=== PATIENT | male | born 1965 | race American Indian/Alaskan Native ===

== ENCOUNTER 2017-10-05 08:25 | Observation (INO) | payer OTHER ==
[2017-10-05 08:25] VITALS: BMI 878.8
--- NOTE | 2017-10-05 09:47 | ED PDOC ---
HPI: General Adult Time Seen by Provider: 10/05/17 09:40 Chief Complaint (Nursing): Chest Pain Chief Complaint (Provider): chest pain History Per: Patient History/Exam Limitations: no limitations Onset/Duration Of Symptoms: Days (7) Have you had recent travel within the past 21 days to any of the following countries: [place], [place], [place] or [place]?: No Current Symptoms Are (Timing): Better Severity: Severe Pain Scale Rating Of: 8 Location: left chest Similar Symptoms Previously: no Recent Trauma: no Additional Complaint(s): pt p/w + ~ 1 week onset of left sided chest pain, at times radiating down to her left upper abd wall region; pt states pain is intermittent, and lasting at most ~ 1 hour; pt states no fever/chills/sweats, no palpitations, no abd pain, no n/v, no numbness/tingling, no urinary/bowel changes; pt denied loc, no lightheadedness, no fall/trauma/sick contact, no travel; pt denied rashes, no other complaints; pt states he became concern today due to the intensity of the pain today; pt states at most pain is severe at 8/10; pt also drinks almost daily, last drink was last night; pt is here for further eval; pt's without other complaints PCP: none family hx: none Past Medical History Reviewed: Historical Data, Nursing Documentation, Vital Signs Vital Signs: Last Vital Signs Temp 98.1 F 10/05/17 08:39 Pulse 77 10/05/17 11:13 Resp 16 10/05/17 11:13 BP 139/82 10/05/17 11:13 Pulse Ox 98 10/05/17 12:53 - Surgical History Surgical History: Tonsillectomy - Family History Family History: States: Unknown Family Hx - Living Arrangements Living Arrangements: With Family - Social History Current smoker - smoking cessation education provided: Yes (6-7 cigs/day) Alcohol: > 2 Drinks/Day Drugs: Cannabis - Immunization History Hx Tetanus Toxoid Vaccination: No Hx Influenza Vaccination: No Hx Pneumococcal Vaccination: No - Home Medications Home Medications: Ambulatory Orders Medication Instructions Recorded Ibuprofen 600 mg PO QID #10 tab 07/04/15 Naproxen [Naprosyn] 500 mg PO BID PRN #14 tablet 04/12/16 - Allergies Allergies/Adverse Reactions: Allergies Allergy/AdvReac Type Severity Reaction Status Date / Time No Known Allergies Allergy Verified 07/04/15 08:50 Review of Systems ROS Statement: Except As Marked, All Systems Reviewed And Found Negative Constitutional: Negative for: Fever, Weakness Eyes: Negative for: Pain ENT: Negative for: Ear Pain Cardiovascular: Positive for: Chest Pain. Negative for: Palpitations Respiratory: Negative for: Shortness of Breath, SOB with Exertion Gastrointestinal: Negative for: Nausea, Vomiting, Abdominal Pain Genitourinary Male: Negative for: Dysuria Musculoskeletal: Negative for: Neck Pain, Back Pain Skin: Negative for: Rash Neurological: Negative for: Weakness, Confusion, Dizziness Physical Exam - Reviewed Nursing Documentation Reviewed: Yes Vital Signs Reviewed: Yes (elevated BP) - Physical Exam Appears: Positive for: Well, Non-toxic (resting in bed, cooperative, mildly uncomfortable, NAD, alert/awake, GCS = 15, oriented x 3), No Acute Distress Head Exam: Positive for: ATRAUMATIC, NORMAL INSPECTION, NORMOCEPHALIC Skin: Positive for: Normal Color (cap refill < 1sec, no ulcerations, no petechiae, no rashes/lesions/pallor), Warm, Dry Eye Exam: Positive for: Normal appearance, EOMI, PERRL. Negative for: Nystagmus ENT: Positive for: Normal ENT Inspection, Other (uvula/tongue are midline, no exudate/lesions, no drooling/stridor; no dysphonia) Neck: Positive for: Normal, Supple, Trachea Midline Cardiovascular/Chest: Positive for: Regular Rate, Rhythm, Chest Non Tender, Other (+S1, +S2) Respiratory: Positive for: Normal Breath Sounds, Other (CTA b/l, no w/r/r, no accessory muscle use noted, no tachypenia) Gastrointestinal/Abdominal: Positive for: Normal Exam, Other (well nourished male, no focal tenderness, no baird's sign, no mcburneys' point tenderness, no masses/rebound/guarding/rigidity) Back: Positive for: Normal Inspection. Negative for: L CVA Tenderness, R CVA Tenderness Extremity: Positive for: Normal ROM, Other (no pitting edema noted b/l, strength 5/5 grossly intact in all limbs, neurovasc intact b/l, + ambulatory). Negative for: Tenderness, Pedal Edema, Calf Tenderness Neurologic/Psych: Positive for: Alert, multiple resaw operator II-XII, Oriented. Negative for: Motor/Sensory Deficits, Facial Droop - Laboratory Results Result Diagrams: 10/05/17 09:55 10/05/17 09:55 - ECG ECG: Positive for: Interpreted By Me Interpretation Of ECG: NSR at 70 bpm, normal axis, no ectopy, voltage criteria LVH, non-specific st-t changes, ABNL EKG; unchanged compare with old ekg 07/2015 O2 Sat by Pulse Oximetry: 98 Pulse Ox Interpretation: Normal - Radiology X-Ray: Viewed By Me, Read By Radiologist - Progress ED Course And Treament: HISTORY: COMPARISON: No prior. TECHNIQUE: Chest PA and lateral FINDINGS: LINES AND TUBES: None. LUNG AND PLEURA: The lungs are well inflated . No lobar pneumonia. There is an apparent 5 mm nodular opacity in the left mid lung. HEART AND MEDIASTINUM: The heart is not enlarged. The hilar and mediastinal contours are within normal limits. SKELETAL STRUCTURES: The bony structures are within normal limits for the patient's age. VISUALIZED UPPER ABDOMEN: Normal. OTHER FINDINGS: None. IMPRESSION: No active pulmonary disease. Apparent 5 mm nodular opacity in the left mid lung. A dedicated CT scan of the thorax without intravenous contrast on a nonemergent basis is recommended for further characterization and complete evaluation of the lungs. pt is currently chest pain free pt is stable, NAD vital signs stable 12:25pm - I spoke to Dr Clay, yardage control operator forming medical service, made aware, agrees with admission/observation pt is made aware of his medical results agrees with admission/observation Re-evaluation Time: 12:00 Condition: Re-examined, Improved - Physician Consult Information Time Consulting Physican Contacted: 12:25 Physician Contacted: Karthik Clay Outcome Of Conversation: yardage control operator forming medical service attending, made aware, agrees with admission/ observation placement Medical Decision Making Medical Decision Making: Impression: chest pain i have consider all the differential diagnosis regarding pt's chief medical complaints/clinical findings, including but are not limited to: chest pain, r/o acs A/P: chest pain, r/o acs - labs - iv - acs eval - observe - supportive care Disposition - Clinical Impression Clinical Impression: Chest pain with low risk of acute coronary syndrome - Patient ED Disposition Is Patient to be Admitted: Yes Discussed With : Karthik Clay Doctor Will See Patient In The: Hospital Counseled Patient/Family Regarding: Studies Performed, Diagnosis, Rx Given, Smoking Cessation - Disposition Disposition Time: 12:31 Condition: STABLE Forms: Yulex (Slovenian) - Pt Status Changed To: Hospital Disposition Of: Observation
[2017-10-05] MEDS: Sodium Chloride 0.9% 1,000 ML IV SCH ×2 (10:02→22:04)
[2017-10-05 10:21] LABS: BASO % 1.1 % (0.0-2.0); EOS # 0.1 K/uL (0.0-0.7); EOS % 1.9 % (0.0-4.0); HEMOGLOBIN 16.1 g/dL (12.0-18.0); LYMPH % 23.2 % (20.0-40.0); MEAN CELL VOLUME 90.3 fl (80.0-94.0); MEAN CORPUSCULAR HEMOGLOBIN 29.9 pg (27.0-31.0); MEAN CORPUSCULAR HGB CONC 33.1 g/dL (33.0-37.0); MEAN PLATELET VOLUME 8.4 fl (7.2-11.7); MONO # 0.6 K/uL (0.0-0.8); MONO % 13.8 % (0.0-10.0); NEUT # 2.5 K/uL (1.8-7.0); NRBC % 0.2 % (0.0-0.0); RBC 5.4 Mil/uL (4.40-5.90); RED CELL DISTRIBUTION WIDTH 13.3 % (11.5-14.5); WHITE BLOOD COUNT 4.1 K/uL (4.8-10.8)
[2017-10-05 10:24] LABS: SQUAMOUS EPITHIAL 1 /hpf (0-5); URINE BILIRUBIN NEGATIVE (NEGATIVE); URINE BLOOD NEGATIVE (NEGATIVE); URINE CLARITY SLIGHTY-CLOUDY (Clear); URINE COLOR YELLOW (YELLOW); URINE GLUCOSE (UA) NEG (Normal); URINE LEUKOCYTE ESTERASE TRACE Leu/uL (Negative); URINE PROTEIN 100 mg/dL (NEGATIVE)
[2017-10-05 10:35] LABS: ALBUMIN 4.3 g/dL (3.5-5.0); ALT/SGPT 31 U/L (21-72); AST/SGOT 38 U/L (17-59); BLOOD UREA NITROGEN 8 mg/dl (9-20); CALCIUM 9.2 mg/dL (8.4-10.2); GFR AFRICAN-AMERICAN > 60; GFR NON-AFRICAN AMERICAN > 60; LIPASE 34 U/L (23-300)
--- NOTE | 2017-10-05 11:50 | RAD ---
HISTORY: COMPARISON: No prior. TECHNIQUE: Chest PA and lateral FINDINGS: LINES AND TUBES: None. LUNG AND PLEURA: The lungs are well inflated . No lobar pneumonia. There is an apparent 5 mm nodular opacity in the left mid lung. HEART AND MEDIASTINUM: The heart is not enlarged. The hilar and mediastinal contours are within normal limits. SKELETAL STRUCTURES: The bony structures are within normal limits for the patient's age. VISUALIZED UPPER ABDOMEN: Normal. OTHER FINDINGS: None. IMPRESSION: No active pulmonary disease. Apparent 5 mm nodular opacity in the left mid lung. A dedicated CT scan of the thorax without intravenous contrast on a nonemergent basis is recommended for further characterization and complete evaluation of the lungs.
--- NOTE | 2017-10-05 15:57 | HP ---
HISTORY OF PRESENT ILLNESS: Mr. Torres is a 52-year-old male who was admitted via the Emergency Room because of left-sided chest and shoulder pain for 4 days prior to presentation, worse on the day of admission. According to the patient's , he had pushed the shopping cart down in embankment before pain started. The patient showed up in the Emergency Room where he was admitted to rule out acute coronary syndrome. PAST MEDICAL HISTORY: He has a past medical history of chest pains in the past, but has never been completely worked up for it. He also has a history of chronic alcoholism and chronic cigarette smoking. FAMILY HISTORY: Noncontributory. SOCIAL HISTORY: Socially, he smokes cigarettes daily and also drinks alcohol heavily (beer) and lives at home with and children. REVIEW OF SYSTEMS: Essentially unremarkable. PHYSICAL EXAMINATION: GENERAL: The patient is alert and oriented, appears much more comfortable at present. VITAL SIGNS: Remarkable for blood pressure of 119/65 with the pulse of 82, respiratory rate of 18. He is afebrile. O2 sat is 98% on room air. SKIN: Shows fair turgor. HEENT: Pupils are equal and reactive to light and accommodation. Mouth shows fair hygiene. NECK: JVP flat. LUNGS: Clear. HEART: Regular. No murmurs or gallop. No chest wall tenderness on deep palpation. ABDOMEN: Soft and nontender, no organomegaly. EXTREMITIES: Show no edema or cyanosis. CENTRAL NERVOUS SYSTEM: Exam is grossly intact. LABORATORY DATA: Already reviewed and shows no abnormalities. EKG, regular sinus rhythm, no ST-T changes. IMPRESSION: Chest pain, one has to rule out acute coronary syndrome, history of chronic alcoholism, and history of chronic cigarette smoking. PLAN: The plan is monitor the patient in telemetry. Obtain cardiac evaluation. Obtain troponin x24 hours. I will repeat EKG in a.m. If clinically stable and cleared by cardiology, we will plan discharge in a.m. Karthik Clay MD
--- NOTE | 2017-10-05 17:40 | CP.PCM.CON ---
History of Present Illness - History of Present Illness History of Present Illness: 52 y/o male with left chest and shoulder pain. pt states pain is sharp, started 2 weeks ago after lifting a heavy object. he believes he injured his chest of shoulder. pt denies sob, palp, orthopnea, pnd ashanti. he denies cardiac hx, denies dm, htn, dyslipidemia. no fam hx of cad. Review of Systems - Constitutional Constitutional: As Per HPI. absent: Anorexia, Chills, Daytime Sleepiness, Excessive Sweating, Fatigue, Fever, Frequent Falls, Headache, Increased Appetite , Lethargy, Malaise, Night Sweats, Snoring, Sleep Apnea, Weight Gain, Weight Loss, Weakness, Other - EENT Eyes: As Per HPI. absent: Blind Spots, Blurred Vision, Change in Vision, Decreased Night Vision, Diplopia, Discharge, Dry Eye, Exophthalmos, Floaters, Irritation, Itchy Eyes, Loss of Peripheral Vision, Pain, Photophobia, Requires Corrective Lenses, Sees Flashes, Spots in Vision, Tunnel Vision, Other Visual Disturbances, Loss of Vision, Other Ears: As Per HPI. absent: Decreased Hearing, Ear Discharge, Ear Pain, Tinnitus , Abnormal Hearing, Disequilibrium, Dizziness, Other Nose/Mouth/Throat: As Per HPI. absent: Epistaxis, Nasal Congestion, Nasal Discharge, Nasal Obstruction, Nasal Trauma, Nose Pain, Post Nasal Drip, Sinus Pain, Sinus Pressure, Bleeding Gums, Change in Voice, Dental Pain, Dry Mouth, Dysphagia, Halitosis, Hoarsness, Lip Swelling, Mouth Lesions, Mouth Pain, Odynophagia, Sore Throat, Throat Swelling, Tongue Swelling, Facial Pain, Neck Pain, Neck Mass, Other - Cardiovascular Cardiovascular: As Per HPI, Chest Pain. absent: Acrocyanosis, Chest Pain at Rest, Chest Pain with Activity, Claudication, Diaphoresis, Dyspnea, Dyspnea on Exertion, Edema, Irregular Heart Rhythm, Pain Radiating to Arm/Neck/Jaw, Leg Edema, Leg Ulcers, Lightheadedness, Orthopnea, Palpitations, Paroxysmal Nocturnal Dyspnea, Pedal Edema, Radiating Pain, Rapid Heart Rate, Slow Heart Rate, Syncope, Other - Respiratory Respiratory: As Per HPI. absent: Cough, Dyspnea, Hemoptysis, Dyspnea on Exertion, Wheezing, Snoring, Stridor, Pain on Inspiration, Chest Congestion, Excessive Mucous Production, Change in Mucous Color, Pain with Coughing, Other - Gastrointestinal Gastrointestinal: As Per HPI. absent: Abdominal Pain, Belching, Bloating, Change in Bowel Habits, Change in Stool Character, Coffee Ground Emesis, Constipation, Cramping, Diarrhea, Dyspepsia, Dysphagia, Early Satiety, Excessive Flatus, Fecal Incontinence, Heartburn, Hematemesis, Hematochezia, Loose Stools, Melena, Nausea, Odynophagia, Temesmus, Vomiting, Other - Genitourinary Genitourinary: As Per HPI. absent: Change in Urinary Stream, Difficulty Urinating, Dysuria, Flank Pain, Hematuria, Pyuria, Nocturia, Urinary Incontinence, Urinary Frequency, Urinary Hesitance, Urinary Urgency, Voiding Freq/Small Amts, Freq UTI, Hx Renal/Bladder Calculi, Hx /Renal Surgery, Bladder Distension, Other - Reproductive: Male Reproductive:Male: As Per HPI - Musculoskeletal Musculoskeletal: As Per HPI, Limited Range of Motion. absent: Abnormal Gait, Arthralgias, Atrophy, Back Pain, Deformity, Joint Swelling, Loss of Height, Muscle Cramps, Muscle Weakness, Myalgias, Neck Pain, Numbness, Radiating Pain into Limb, Stiffness, Tingling, Other Additional comments: unable to actively abduct or flex at left shoulder joint. - Integumentary Integumentary: As Per HPI. absent: Acne, Alopecia, Bleeding Lesions, Change in Hair, Change in Nails, Change in Pigmentation, Changing Lesions, Dry Skin, Erythema, Furuncle, Hirsutism, Lesions, New Lesions, Non-Healing Lesions, Photosensitivity, Pruritus, Rash, Skin Pain, Skin Ulcer, Sores, Striae, Swelling , Unusual Bruising, Wounds, Jaundice, Other - Neurological Neurological: As Per HPI. absent: Abnormal Gait, Abnormal Hearing, Abnormal Movements, Abnormal Speech, Behavioral Changes, Burning Sensations, Confusion, Convulsions, Disequilibrium, Dizziness, Numbness, Focal Weakness, Frequent Falls , Headaches, Lack of Coordination, Loss of Vision, Memory Loss, Paresthesias, Radicular Pain, Restless Legs, Sensory Deficit, Syncope, Tingling, Tremor, Vertigo, Weakness, Other Visual Disturbances, Other - Psychiatric Psychiatric: As Per HPI. absent: Abnormal Sleep Pattern, Anhedonia, Anxiety, Auditory Hallucinations, Behavioral Changes, Change in Appetite, Change in Libido, Confusion, Depression, Difficulty Concentrating, Hallucinations, Homicidal Ideation, Hopelessness, Irritability, Memory Loss, Mood Swings, Panic Attacks, Paranoia, Suicidal Ideation, Visual Hallucinations, Tactile Hallucinations, Other - Endocrine Endocrine: As Per HPI. absent: Change in Body Appearance, Change in Libido, Cold Intolorance, Deepening of Voice, Excessive Sweating, Fatigue, Flushing, Heat Intolorance, Increase in Ring/Shoe/Hat Size, Palpitations, Polydipsia, Polyphagia, Polyuria, Other - Hematologic/Lymphatic Hematologic: As Per HPI. absent: Easy Bleeding, Easy Bruising, Lymphadenopathy , Other Past Patient History - Past Social History Smoking Status: Heavy Smoker > 10 Cigarettes Daily Chewing Tobacco Use: No Cigar Use: No Alcohol: > 2 Drinks/Day Drugs: Cannabis - CARDIAC Hx Cardiac Disorders: No - PSYCHIATRIC Hx Substance Use: No (DENIED) - SURGICAL HISTORY Hx Tonsillectomy: Yes - ANESTHESIA Hx Anesthesia: Yes Hx Anesthesia Reactions: No Meds Allergies/Adverse Reactions: Allergies Allergy/AdvReac Type Severity Reaction Status Date / Time No Known Allergies Allergy Verified 07/04/15 08:50 - Medications Medications: Current Medications Alprazolam (Xanax) 0.25 mg PO Q12 PRN PRN Reason: Agitation Stop: 10/12/17 15:04 Aspirin (Aspirin Chewable) 81 mg PO DAILY [facility] Enoxaparin Sodium (Lovenox) 40 mg SC DAILY [facility] PRN Reason: Protocol Sodium Chloride (Sodium Chloride 0.9%) 1,000 mls @ 100 mls/hr IV .Q10H [facility] Stop: 10/06/17 09:43 Last Admin: 10/05/17 10:02 Dose: 100 mls/hr Naproxen (Naprosyn Tab) 375 mg PO Q12 [facility] Physical Exam - Constitutional Appears: Non-toxic - Head Exam Head Exam: ATRAUMATIC, NORMAL INSPECTION, NORMOCEPHALIC - Eye Exam Eye Exam: EOMI, Normal appearance, PERRL. absent: Conjunctival injection, Nystagmus, Periorbital swelling, Periorbital tenderness, Scleral icterus Pupil Exam: NORMAL ACCOMODATION, PERRL. absent: Fixed, Irregular, Miosis, Mydriatic, Unequal - ENT Exam ENT Exam: Mucous Membranes Moist, Normal Exam. absent: Mucous Membranes Dry, Normal External Ear Exam, Normal Oropharynx, TM's Normal Bilaterally - Neck Exam Neck exam: Positive for: Normal Inspection. Negative for: Full Rom, Lymphadenopathy, Meningismus, Tenderness, Thyromegaly - Respiratory Exam Respiratory Exam: Clear to Auscultation Bilateral, NORMAL BREATHING PATTERN. absent: Accessory Muscle Use, Chest Wall Tenderness, Decreased Breath Sounds, Prolonged Expiratory Phase, Rales, Rhonchi, Wheezes, Respiratory Distress, Stridor - Cardiovascular Exam Cardiovascular Exam: REGULAR RHYTHM, +S1, +S2. absent: Bradycardia, Tachycardia , Clicks, Diastolic murmur, Gallop, Irregular Rhythm, JVD, RRR, Rubs, +S4, Systolic Murmur - GI/Abdominal Exam GI & Abdominal Exam: Normal Bowel Sounds, Soft. absent: Bruit, Diminished Bowel Sounds, Distended, Firm, Guarding, Hernia, Hyperactive Bowel Sounds, Hypoactive Bowel Sounds, Mass, Organomegaly, Pulsatile Mass, Rebound, Rigid, Tenderness - Rectal Exam Rectal Exam: Deferred - Extremities Exam Additional comments: left shoulder weakness unable to abduct or flex at left ghj. with passive motion pain is reproduced. - Back Exam Back exam: NORMAL INSPECTION - Neurological Exam Neurological exam: Alert, CN II-XII Intact, Normal Gait, Oriented x3, Reflexes Normal - Psychiatric Exam Psychiatric exam: Normal Affect, Normal Mood - Skin Skin Exam: Dry, Intact, Normal Color, Warm Results - Vital Signs Recent Vital Signs: Last Vital Signs Temp 98.1 F 10/05/17 08:39 Pulse 82 10/05/17 13:39 Resp 18 10/05/17 13:39 BP 119/65 10/05/17 13:39 Pulse Ox 98 10/05/17 13:39 - Labs Result Diagrams: 10/05/17 09:55 10/05/17 09:55 Labs: Laboratory Results - last 24 hr 10/05/17 10/05/17 10/05/17 09:55 09:55 09:55 WBC 4.1 L RBC 5.40 Hgb 16.1 Hct 48.8 MCV 90.3 MCH 29.9 MCHC 33.1 RDW 13.3 Plt Count 141 MPV 8.4 Neut % (Auto) 60.0 Lymph % (Auto) 23.2 Desha % (Auto) 13.8 H Eos % (Auto) 1.9 Baso % (Auto) 1.1 Neut # (Auto) 2.5 Lymph # (Auto) 1.0 Desha # (Auto) 0.6 Eos # (Auto) 0.1 Baso # (Auto) 0.0 Sodium 142 Potassium 3.9 Chloride 101 Carbon Dioxide 28 Anion Gap 17 BUN 8 L Creatinine 0.7 L Est GFR ( Amer) > 60 Est GFR (Non-Af Amer) > 60 Random Glucose 88 Calcium 9.2 Magnesium 1.9 Total Bilirubin 0.6 AST 38 ALT 31 Alkaline Phosphatase 80 Troponin I < 0.0120 Total Protein 8.6 H Albumin 4.3 Globulin 4.3 H Albumin/Globulin Ratio 1.0 Lipase 34 Urine Color Yellow Urine Clarity Slighty-cloudy Urine pH 6.0 Ur Specific [place] 1.023 Urine Protein 100 Urine Glucose (UA) Neg Urine Ketones Trace Urine Blood Negative Urine Nitrate Negative Urine Bilirubin Negative Urine Urobilinogen 2.0 Ur Leukocyte Esterase Trace Urine RBC (Auto) 3 Urine Microscopic WBC 7 H Ur Squamous Epith Cells 1 Alcohol, Quantitative < 10 10/05/17 15:58 WBC RBC Hgb Hct MCV MCH MCHC RDW Plt Count MPV Neut % (Auto) Lymph % (Auto) Desha % (Auto) Eos % (Auto) Baso % (Auto) Neut # (Auto) Lymph # (Auto) Desha # (Auto) Eos # (Auto) Baso # (Auto) Sodium Potassium Chloride Carbon Dioxide Anion Gap BUN Creatinine Est GFR ( Amer) Est GFR (Non-Af Amer) Random Glucose Calcium Magnesium Total Bilirubin AST ALT Alkaline Phosphatase Troponin I < 0.0120 Total Protein Albumin Globulin Albumin/Globulin Ratio Lipase Urine Color Urine Clarity Urine pH Ur Specific [place] Urine Protein Urine Glucose (UA) Urine Ketones Urine Blood Urine Nitrate Urine Bilirubin Urine Urobilinogen Ur Leukocyte Esterase Urine RBC (Auto) Urine Microscopic WBC Ur Squamous Epith Cells Alcohol, Quantitative - EKG Data EKG Interpreted by: Myself EKG shows normal: Sinus rhythm Rate: Normal Assessment & Plan (1) Musculoskeletal chest pain Status: Acute (2) Left shoulder pain Status: Acute (3) LUE weakness Status: Acute - Assessment and Plan (Free Text) Plan: ekg wnl, no LVH (increased voltage due to body habitus) pain c/w MSK. His limited shoulder mobility is concerning for ligament or tendon tears will consult ortho no further cardiac w/u nec trop neg x2
[2017-10-05] MEDS: Enoxaparin 40 mg Syringe SC SCH (18:04)
--- NOTE | 2017-10-05 18:09 | CARD ---
APPROVED REPORT EKG Measurement Heart [id number] <Conclusion> Normal sinus rhythm Moderate voltage criteria for LVH, may be normal variant Borderline ECG
[2017-10-06 07:55] LABS: HDL CHOLESTEROL 48 MG/DL (30-70)
[2017-10-06 08:06] LABS: LDL CHOLESTEROL 128 mg/dL (0-129)
[2017-10-06 08:24] VITALS: BP 132/80; PULSE 73; RESP 20; TEMP 98.3; O2SAT 99
[2017-10-06] MEDS: Enoxaparin 40 mg Syringe SC SCH (08:33)
--- NOTE | 2017-10-06 10:14 | CP.PCM.DIS ---
Provider - Provider Date of Admission: 10/05/17 12:31 Attending physician: Karthik Clay MD Time Spent in preparation of Discharge (in minutes): 30 Diagnosis - Discharge Diagnosis (1) Chronic alcohol abuse Status: Acute (2) Left shoulder pain Status: Acute (3) Musculoskeletal chest pain Status: Acute Hospital Course - Lab Results Lab Results: Most Recent Lab Values WBC 4.1 K/uL (4.8-10.8) L 10/05/17 09:55 RBC 5.40 Mil/uL (4.40-5.90) 10/05/17 09:55 Hgb 16.1 g/dL (12.0-18.0) 10/05/17 09:55 Hct 48.8 % (35.0-51.0) 10/05/17 09:55 MCV 90.3 fl (80.0-94.0) 10/05/17 09:55 MCH 29.9 pg (27.0-31.0) 10/05/17 09:55 MCHC 33.1 g/dL (33.0-37.0) 10/05/17 09:55 RDW 13.3 % (11.5-14.5) 10/05/17 09:55 Plt Count 141 K/uL (130-400) 10/05/17 09:55 MPV 8.4 fl (7.2-11.7) 10/05/17 09:55 Neut % (Auto) 60.0 % (50.0-75.0) 10/05/17 09:55 Lymph % (Auto) 23.2 % (20.0-40.0) 10/05/17 09:55 Cole % (Auto) 13.8 % (0.0-10.0) H 10/05/17 09:55 Eos % (Auto) 1.9 % (0.0-4.0) 10/05/17 09:55 Baso % (Auto) 1.1 % (0.0-2.0) 10/05/17 09:55 Neut # (Auto) 2.5 K/uL (1.8-7.0) 10/05/17 09:55 Lymph # (Auto) 1.0 K/uL (1.0-4.3) 10/05/17 09:55 Cole # (Auto) 0.6 K/uL (0.0-0.8) 10/05/17 09:55 Eos # (Auto) 0.1 K/uL (0.0-0.7) 10/05/17 09:55 Baso # (Auto) 0.0 K/uL (0.0-0.2) 10/05/17 09:55 Sodium 142 mmol/l (132-148) 10/05/17 09:55 Potassium 3.9 MMOL/L (3.6-5.0) 10/05/17 09:55 Chloride 101 mmol/L (98-107) 10/05/17 09:55 Carbon Dioxide 28 mmol/L (22-30) 10/05/17 09:55 Anion Gap 17 (10-20) 10/05/17 09:55 BUN 8 mg/dl (9-20) L 10/05/17 09:55 Creatinine 0.7 mg/dl (0.8-1.5) L 10/05/17 09:55 Est GFR ( Amer) > 60 10/05/17 09:55 Est GFR (Non-Af Amer) > 60 10/05/17 09:55 Random Glucose 88 mg/dL (75-110) 10/05/17 09:55 Calcium 9.2 mg/dL (8.4-10.2) 10/05/17 09:55 Magnesium 1.9 MG/DL (1.6-2.3) 10/05/17 09:55 Total Bilirubin 0.6 mg/dl (0.2-1.3) 10/05/17 09:55 AST 38 U/L (17-59) 10/05/17 09:55 ALT 31 U/L (21-72) 10/05/17 09:55 Alkaline Phosphatase 80 U/L (38-126) 10/05/17 09:55 Troponin I < 0.0120 ng/mL (0.00-0.120) 10/05/17 15:58 Total Protein 8.6 G/DL (6.3-8.2) H 10/05/17 09:55 Albumin 4.3 g/dL (3.5-5.0) 10/05/17 09:55 Globulin 4.3 gm/dL (2.2-3.9) H 10/05/17 09:55 Albumin/Globulin Ratio 1.0 (1.0-2.1) 10/05/17 09:55 Triglycerides 121 mg/DL (0-149) 10/06/17 07:02 Cholesterol 214 mg/dL (0-199) H 10/06/17 07:02 LDL Cholesterol Direct 128 mg/dL (0-129) 10/06/17 07:02 HDL Cholesterol 48 MG/DL (30-70) 10/06/17 07:02 Lipase 34 U/L (23-300) 10/05/17 09:55 Urine Color Yellow (YELLOW) 10/05/17 09:55 Urine Clarity Slighty-cloudy (Clear) 10/05/17 09:55 Urine pH 6.0 (5.0-8.0) 10/05/17 09:55 Ur Specific [place] 1.023 (1.003-1.030) 10/05/17 09:55 Urine Protein 100 mg/dL (NEGATIVE) 10/05/17 09:55 Urine Glucose (UA) Neg mg/dL (Normal) 10/05/17 09:55 Urine Ketones Trace mg/dL (NEGATIVE) 10/05/17 09:55 Urine Blood Negative (NEGATIVE) 10/05/17 09:55 Urine Nitrate Negative (NEGATIVE) 10/05/17 09:55 Urine Bilirubin Negative (NEGATIVE) 10/05/17 09:55 Urine Urobilinogen 2.0 mg/dL (0.2-1.0) 10/05/17 09:55 Ur Leukocyte Esterase Trace Vivian/uL (Negative) 10/05/17 09:55 Urine RBC (Auto) 3 /hpf (0-3) 10/05/17 09:55 Urine Microscopic WBC 7 /hpf (0-5) H 10/05/17 09:55 Ur Squamous Epith Cells 1 /hpf (0-5) 10/05/17 09:55 Alcohol, Quantitative < 10 mg/dl (0-10) 10/05/17 09:55 - Hospital Course Hospital Course: CHEST PAIN RESOLVED TROPONIN NEGATIVE EKG-RSR Discharge Exam - Head Exam Head Exam: ATRAUMATIC, NORMAL INSPECTION, NORMOCEPHALIC - Eye Exam Eye Exam: EOMI, Normal appearance, PERRL Pupil Exam: NORMAL ACCOMODATION, PERRL - GI/Abdominal Exam GI & Abdominal Exam: Normal Bowel Sounds - Rectal Exam Rectal Exam: NORMAL INSPECTION - Extremities Exam Additional comments: L SHOULDER TENDERNESS - Neurological Exam Neurological exam: Alert, CN II-XII Intact, Normal Gait, Oriented x3, Reflexes Normal - Psychiatric Exam Psychiatric exam: Normal Affect, Normal Mood - Skin Skin Exam: Dry, Intact, Normal Color, Warm Discharge Plan - Follow Up Plan Condition: STABLE Disposition: HOME/ ROUTINE Patient education suggested?: Yes Additional Instructions: CLEARED FOR D/C BY MENTAL HEALTH CASE MANAGER WILL FOLLOW UP WITH PMD FOR FURTHER EVAL ADVISED SMOKING CAESATION AND ALCOHOL ABSTINENCE
== END 2017-10-06 10:30 | disposition home or self-care (01) ==
LOC: H.ER 08:25 → H.ERHOLD 12:31 → H.TEL 10-06 01:10
PROVIDERS: ADMIT Internal Medicine Pulmonary Disease; ATTEND Internal Medicine Pulmonary Disease
DX: R07.89 Other chest pain (principal); F17.210 Nicotine dependence, cigarettes, uncomplicated; X50.0XXA Overexertion from strenuous movement or load, initial encounter; F10.20 Alcohol dependence, uncomplicated; M25.512 Pain in left shoulder; Y93.9 Activity, unspecified; Y92.9 Unspecified place or not applicable
CPT/HCPCS: 36415; 71046; 80053; 80061; 80320; 81003; 83690; 83735; 84484; 85025; 93005; 96360; 96372; 99285; G0378; J1650; J7040